=== PATIENT | female | born 2000 | race Caucasian/White ===

== ENCOUNTER → 2018-09-18 23:54 | Observation (INO) ==
[2018-09-18 21:41] LABS: Amphetamine Screen,Urine Negative ng/mL (Cutoff=1000); Barbiturate Screen,Urine Negative ng/mL (Cutoff=200); Benzodiazepines Screen,Urine Negative ng/mL (Cutoff=200); Cannabinoid Screen,Urine Negative ng/mL (Cutoff = 50); Cocaine Screen,Urine Negative ng/mL (Cutoff= 300); Opiate Screen,Urine Negative ng/mL (Cutoff=300); Phencyclidine Screen,Urine Negative ng/mL (Cutoff=25)
--- NOTE | 2018-09-19 00:58 | Discharge Summary ---
Date of Encounter: 09/19/18 Time of Encounter: 00:58 - Discharge Diagnosis (1) 28 weeks gestation of Priority: Primary Status: Acute Comments: Follow-up with her primary flat machine cutter as scheduled Return labor parameters discussed Discharge home (2) Fall Priority: Secondary Status: Acute Comments: Patient monitored for over 4 hours with a category 1 tracing Traumatic lab work negative Qualifiers: Encounter type: initial encounter Qualified Code(s): W19.XXXA - Unspecified fall, initial encounter - Discharge Medications Prescriptions: No Action Lisinopril [Zestril] 10 mg PO DAILY Labetalol HCl 100 mg PO BID cephALEXin [Keflex] 500 mg PO QID #28 capsule Ranitidine HCl [Zantac 75] 75 mg PO DAILY Home Medications: Ranitidine HCl [Zantac 75] 75 mg PO DAILY 01/14/18 [History] Labetalol HCl 100 mg PO BID 06/08/18 [History] Lisinopril [Zestril] 10 mg PO DAILY 06/08/18 [History] cephALEXin [Keflex] 500 mg PO QID #28 capsule 06/08/18 [Rx] Allergies/Adverse Reactions: Allergy/AdvReac Type Severity Reaction Status Date / Time No Known Allergies Allergy Verified 09/18/18 20:29 Data Procedures and tests throughout hospitalization: Laboratory Tests 09/18/18 09/18/18 09/18/18 21:15 21:15 21:15 Volume Blood 0 Fibrinogen Urine Opiates Screen Negative Ur Barbiturates Screen Negative Ur Phencyclidine Scrn Negative Ur Amphetamines Screen Negative U Benzodiazepines Scrn Negative Urine Cocaine Screen Negative U Marijuana (THC) Screen Negative Ur Drug Screen Interp See Below Blood Type O NEGATIVE 09/18/18 21:15 Volume Blood Fibrinogen 465 H Urine Opiates Screen Ur Barbiturates Screen Ur Phencyclidine Scrn Ur Amphetamines Screen U Benzodiazepines Scrn Urine Cocaine Screen U Marijuana (THC) Screen Ur Drug Screen Interp Blood Type Labs on day of discharge: Labs from last 24 hours 09/18/18 09/18/18 09/18/18 21:15 21:15 21:15 Volume Blood 0 Fibrinogen 465 H Urine Opiates Screen Ur Barbiturates Screen Ur Phencyclidine Scrn Ur Amphetamines Screen U Benzodiazepines Scrn Urine Cocaine Screen U Marijuana (THC) Screen Ur Drug Screen Interp Blood Type O NEGATIVE 09/18/18 21:15 Volume Blood Fibrinogen Urine Opiates Screen Negative Ur Barbiturates Screen Negative Ur Phencyclidine Scrn Negative Ur Amphetamines Screen Negative U Benzodiazepines Scrn Negative Urine Cocaine Screen Negative U Marijuana (THC) Screen Negative Ur Drug Screen Interp See Below Blood Type Date of admission: 09/18/18 20:07 Discharging clinician: Ginny Lee Anticipated date of discharge: 09/19/18 - Patient Status Disposition: Home, Self-Care Condition: Good Functional capacity at discharge: independent ambulation Overall status at discharge: patient is progressing back to baseline - Discharge Instructions Additional Instructions: LABOR AND DELIVERY DISCHARGE INSTRUCTIONS Signs and Symptoms to be Reported to your Doctor Immediately: * Sudden gush, continuous or intermittent lead of fluid from vagina (note the time of gush and color of fluid) * Onset of bright red vaginal bleeding with or without pain (if you had a vaginal exam during this visit you may notice some dark red spotting. This is normal.) * Lower abdominal cramping or backache that is premenstrual-like feeling. * More than 6 contractions in one hour. * Burning during urination, having to urinate more frequently or pain in your mid-back. * A change in the baby's activity. This could be an increase or decrease in activity. * Severe headache which does not go away with tylenol. * Sudden swelling in the face, hands, arms and/or legs. * Upper abdominal pain - sometimes associated with heartburn or nausea and is not relieved by Maalox, Mylanta or Tums. * Dizziness or blurred vision or visual disturbances (seeing stars/lights). * Kick Counts One hour after a meal, lay down on one side in a quiet place. Count the number of ti the baby moves during an hour. If less than 6 movements, notify your physician. Diet: *Force fluids - 8-10 tall glasses of fluid per day. May include popsicles and jello. *Limit caffeine - this includes chocolate, coffee, tea, any soft drink containing such as all vianney, [place] Yellow and Mountain Dew - Diet and Activity Activity: increase activity as tolerated Diet: regular diet Hospital Course [employer] Reason for admission: other Discharge diagnosis: other Hospital course: Patient presented status post falling on buttocks at 1920 on 09/18/18. She endorses good movement and denies leakage of fluid, vaginal bleeding, contractions. She reports she is simply "concern for her baby". She was monitored for over 4 hours while on labor and delivery in addition to having lab work done that ligated indication for maternal trauma. She was discharged home in stable condition with appropriate follow-up instructions Time Attestation: Total time spent providing and/or coordinating discharge services: Time Spent: Less than 30 minutes Exam - Constitutional General appearance IM: mild distress, A&O X 3, morbidly obese, pleasant, answers questions appropriately - Respiratory Respiratory exam: Present: CTAB - Cardiovascular Cardiovascular exam IM: Present: RRR, +S1, +S2 - GI/Abdominal GI/Abdominal exam IM: normal bowel sounds, no peritoneal signs - Rectal Rectal exam: deferred - Uterine Tone: Firm - Extremities Exam Extremities exam IM: Present: full ROM, normal capillary refill, normal inspection, radial pulses palpable and symmetrical - Neurological Exam Neurological exam: alert, CN II-XII intact, normal gait, oriented X3, reflexes normal, no focal deficits, strengths equal and symetr throughout - VTE Reasons for not Prescribing Prophylaxis: Treatment not Indicated - Low risk for VTE
== END | disposition home or self-care (01) ==
LOC: 1NENULAB
PROVIDERS: ADMIT Advanced Practice Midwife; ATTEND Advanced Practice Midwife